=== PATIENT | female | born 1995 | race Caucasian/White ===

== ENCOUNTER 2024-07-22 17:27 | Emergency (ER) | payer MEDICAID ==
[~2024-07-22] VITALS: Ht 162.6 cm; Wt 100.0 kg
[2024-07-22 18:00] VITALS: BP 117/74; PULSE 93; RESP 18; TEMP 98.9; O2SAT 99
== END 2024-07-22 21:00 | disposition left against medical advice (07) ==
LOC: ER 17:27
DX: Z53.21 Procedure and treatment not carried out due to patient leaving prior to being seen by health care provider (principal)